=== PATIENT | female | born 1995 | race Caucasian/White ===

== ENCOUNTER 2021-07-28 21:46 | Emergency (ER) | payer MEDICAID ==
[~2021-07-28] VITALS: Ht 154.9 cm; Wt 63.6 kg
[2021-07-28] MEDS ORDERED: BACTRIM DS TAB1 EACH PO (22:16)
[2021-07-28 22:34] VITALS: BP 105/83
== END 2021-07-28 22:34 | disposition home or self-care (01) ==
LOC: ED 21:46
DX: L03.113 Cellulitis of right upper limb (principal); Z28.310 Unvaccinated for COVID-19
CPT/HCPCS: J0696